=== PATIENT | female | born 1980 | race Hispanic/Latino ===

== ENCOUNTER 2017-05-08 18:57 | Emergency (ER) | payer BC ==
[2017-05-08 19:04] VITALS: RESP 18; TEMP 97.9; O2SAT 100
--- NOTE | 2017-05-08 19:36 | C.PDOC ---
History Of Present Illness 36 year old female who presents to the ER with a complaint of left foot pain and swelling since yesterday after she tripped on the curb. Patient states she has been taking OTC medication with minimum relief to pain. Denies weakness, numbness, or other injury. Time Seen by Provider: 05/08/17 19:16 Chief Complaint (Nursing): Lower Extremity Problem/Injury History Per: Patient History/Exam Limitations: no limitations Onset/Duration Of Symptoms: Days Current Symptoms Are (Timing): Still Present Recent travel outside of the [place]: No - Ankle/Foot Description Of Injury: Other (Tripped) Past Medical History Reviewed: Historical Data, Nursing Documentation, Vital Signs Vital Signs: Last Vital Signs Temp 97.9 F 05/08/17 19:00 Pulse 100 H 05/08/17 19:00 Resp 18 05/08/17 19:00 BP 119/77 05/08/17 19:00 Pulse Ox 100 05/08/17 19:59 - Medical History PMH: No Chronic Diseases Surgical History: No Surg Hx Family History: States: Unknown Family Hx - Social History Hx Alcohol Use: Yes Hx Substance Use: No - Immunization History Hx Tetanus Toxoid Vaccination: No Hx Influenza Vaccination: No Hx Pneumococcal Vaccination: No Review Of Systems Musculoskeletal: Positive for: Foot Pain Neurological: Negative for: Weakness, Numbness Physical Exam - Physical Exam Appears: Non-toxic, No Acute Distress Skin: Normal Color, Warm, Dry Head: Atraumatic, Normacephalic Oral Mucosa: Moist Extremity: Normal ROM (x4), Tenderness (Mild to left great toe), Capillary Refill (<2 seconds), No Deformity Pulses: Left Dorsalis Pedis: Normal, Right Dorsalis Pedis: Normal Neurological/Psych: Oriented x3, Normal Speech, Normal Cognition, Normal Motor, Normal Sensation ED Course And Treatment O2 Sat by Pulse Oximetry: 100 (Room air) Pulse Ox Interpretation: Normal Medical Decision Making Medical Decision Making: Impression: foot injury Differential diagnosis includes but not limited to: fracture vs contusion Plan: * xray foot Progress: xray viewed by me showing no acute fracture, no dislocation Explain results to patient. Patient advise to take analgesics as needed and follow up with ortho if the pain persists. Disposition Counseled Patient/Family Regarding: Studies Performed, Diagnosis, Need For Followup - Disposition Referrals: Podiatry Clinic [Outside] Disposition: HOME/ ROUTINE Disposition Time: :59 Condition: STABLE Additional Instructions: Your xray was normal, no fracture. Take Motrin as needed for pain every 6 hours , with food to not upset stomach. Follow up with orthopedic if pain persists over one week. Instructions: Foot Contusion (ED) Forms: [employer] ([place]) - POA Present On Arrival: None - Clinical Impression Clinical Impression: Toe contusion - Scribe Statement The provider has reviewed the documentation as recorded by the Scribidris Canales All medical record entries made by the Scribe were at my direction and personally dictated by me. I have reviewed the chart and agree that the record accurately reflects my personal performance of the history, physical exam, medical decision making, and the department course for this patient. I have also personally directed, reviewed, and agree with the discharge instructions and disposition.
[2017-05-08 20:32] VITALS: BP 112/72; PULSE 85
--- NOTE | 2017-05-09 07:33 | RAD ---
PROCEDURE: Left Foot Radiographs. HISTORY: pain to great toe and foot, s.p injury COMPARISON: None. FINDINGS: BONES: No fracture identified. Small to moderate size plantar calcaneal spur JOINTS: No dislocation seen. Bony articulations appear maintained. SOFT TISSUES: Unremarkable OTHER FINDINGS: None. IMPRESSION: No fracture or dislocation identified.
== END 2017-05-08 20:33 | disposition home or self-care (01) ==
LOC: C.ER 18:57
DX: S90.112A Contusion of left great toe without damage to nail, initial encounter (principal); W01.0XXA Fall on same level from slipping, tripping and stumbling without subsequent striking against object, initial encounter